=== PATIENT | male | born 1935 | race Caucasian/White ===

== ENCOUNTER 2024-08-14 11:00 | Emergency (ER) | payer MEDICARE, BC ==
[~2024-08-14] VITALS: Ht 170.2 cm; Wt 90.7 kg
[~2024-08-14 11:00] MED LIST: ACID1TAB4 PO; Acetaminophen PO; CYAN10006 IM; Docusate Sodium PO; FINA5TAB3 PO; MAGN400O6 PO; MULT-1045 PO; Magnesium Oxide PO; Metoprolol Tartrate PO; PANT40TA2 PO; PIPE3.379 IV; RIVA10TA PO; RXVAN XX; TAMS-3 PO
[2024-08-14 12:02] LABS: BASOPHILS % (AUTO) 0.5 % (0.0-2.0); EOSINOPHILS # (AUTO) 0.1 K/uL (0.0-0.7); EOSINOPHILS % (AUTO) 1.7 % (0.0-7.0); HEMATOCRIT 35.6 % (36.7-47.1); HEMOGLOBIN 12.1 g/dL (12.5-16.3); LYMPHOCYTES # (AUTO) 1.4 K/uL (0.8-4.8); LYMPHOCYTES % (AUTO) 28.2 % (20.5-51.5); MEAN CORPUSCULAR HEMOGLOBIN 32.2 uug (23.8-33.4); MEAN CORPUSCULAR HGB CONC 34 g/dL (32.5-36.3); MEAN CORPUSCULAR VOLUME 95.2 fL (73.0-96.2); MONOCYTES # (AUTO) 0.7 K/uL (0.1-1.30); MONOCYTES % (AUTO) 14.3 % (0.0-11.0); NEUTROPHILS # (AUTO) 2.7 K/uL (1.8-8.9); NEUTROPHILS % (AUTO) 55.3 % (38.5-71.5); PLATELET COUNT (AUTO) 197 K/uL (152-348); RED BLOOD CELL COUNT(AUTO) 3.74 MIL/uL (4.06-5.63); RED CELL DISTRIBUTION WIDTH 12.6 % (12.1-16.2); WHITE BLOOD COUNT (AUTO) 4.9 K/uL (3.6-10.2)
[2024-08-14 12:25] LABS: CALCIUM 9.4 mg/dL (8.5-10.1); CARBON DIOXIDE 27 mmol/L (21-32); CHLORIDE 100 mmol/L (98-107); CREATININE 1.1 mg/dL (0.6-1.3); GLUCOSE 100 mg/dL (74-106); POTASSIUM 5.3 mmol/L (3.5-5.1); SODIUM SERUM 135 mmol/L (136-145); UREA NITROGEN, BLOOD 22 mg/dL (7-18)
[2024-08-14 12:34] LABS: DIFFERENTIAL COMMENT 1
[2024-08-14 12:38] LABS: ALANINE AMINOTRANSFERASE 22 U/L (16-63); ALBUMIN 3.4 g/dL (3.4-5.0); ALKALINE PHOSPHATASE 57 U/L (50-136); ASPARTATE AMINOTRANSFERASE 30 U/L (15-37); BILIRUBIN,DIRECT 0.1 mg/dL (0.0-0.2); BILIRUBIN,TOTAL 0.5 mg/dL (0.2-1.0); NT-PRO BNP 362 pg/mL (0-125); TOTAL PROTEIN, SERUM 6.9 g/dL (6.4-8.2)
[2024-08-14] MEDS ORDERED: PROM5SYR PO (12:55)
[2024-08-14] MEDS ORDERED: DOXY100T2 PO (12:55)
[2024-08-14] MEDS ORDERED: LACT10SO58 PO (12:57)
[2024-08-14 13:34] VITALS: O2SAT 96
[2024-08-14] MEDS ORDERED: ALBUTEROL SULFATE 2.5 MG/3 ML NEBU ONE (13:34)
[2024-08-14] MEDS ORDERED: IPRATROPIUM BROMIDE 0.5 MG/2.5 ML NEBU ONE (13:34)
[2024-08-14] MEDS: IPRATROPIUM BROMIDE 0.5 MG/2.5 ML NEBU NEB ONE (13:36)
[2024-08-14] MEDS: ALBUTEROL SULFATE 2.5 MG/3 ML NEBU NEB ONE (13:36)
[2024-08-14] MEDS ORDERED: ALBU8.5H8 INH (13:44)
[2024-08-14] MEDS ORDERED: PRED-429 PO (13:44)
[2024-08-14] MEDS ORDERED: BUDE10.2 INH (13:44)
[2024-08-14 13:46] VITALS: O2SAT 99
[2024-08-14] MEDS: DOXYCYCLINE HYCLATE 100 MG TABLET PO ONE (14:07)
[2024-08-14] MEDS: DEXAMETHASONE SOD PHOSPHATE 4 MG INJ IM ONE (14:07)
[2024-08-14 14:11] VITALS: BP 134/64; O2SAT 99
== END 2024-08-14 14:12 | disposition home or self-care (01) ==
LOC: ER 11:00
DX: J20.9 Acute bronchitis, unspecified (principal); N40.0 Benign prostatic hyperplasia without lower urinary tract symptoms; Z79.01 Long term (current) use of anticoagulants; Z79.51 Long term (current) use of inhaled steroids; Z79.899 Other long term (current) drug therapy; Z86.718 Personal history of other venous thrombosis and embolism; Z96.659 Presence of unspecified artificial knee joint; Z20.822 Contact with and (suspected) exposure to COVID-19
CPT/HCPCS: 36415; 71045; 84484; 85025; A4606; A4663; J3590